=== PATIENT | female | born 1990 | race Caucasian/White ===

== ENCOUNTER 2016-06-30 | Inpatient (IN) | payer OTHER ==
[~2016-06-30] MED LIST: CLEOCIN HCL150 MG PO; CLEOCIN HCL300 M1 PO; NAPROXEN375 M1; PRENATAL1 TA1 PO; ZOFRAN ODT4 MG PO
--- NOTE | ~2016-06-30 | PN ---
Unit #: [id number] #: [id number] Patient: HANK WADE [id number] [facility] [address] [place] [address] [id number] MR#: [id number] NAME: HANK WADE ROOM: P203 Age: 26 Sex: F Admission Date: 06/30/2016 : 1990 Attending Physician: Ty Tavares M.D. Admitting Physician: Ty Tavares M.D. Primary Care Physician: Primary Care Physician Claudette HERNANDEZ PROGRESS NOTES DATE 07/01/2016 DISCUSSION The patient is seclusive to room. She continues to deny substance abuse despite proved to the contrary and continues to express paranoid feelings regarding her family. I will go ahead and initiate Zyprexa 10 mg at h.s. to address psychotic symptoms whether substance-induced or not. Dictated by... Ty Tavares M.D. CB/carmelo TD: 07/01/2016 13:37 JOB #: [id number] [facility] PROGRESS NOTES Page 1 of 1 X Ty Tavares MD X PROGRESS NOTE
--- NOTE | ~2016-06-30 | PN ---
Unit #: [id number] #: [id number] Patient: HANK WADE [id number] [facility] [address] [place] [address] [id number] MR#: [id number] NAME: HANK WADE ROOM: P203 Age: 26 Sex: F Admission Date: 06/30/2016 : 1990 Attending Physician: Ty Tavares M.D. Admitting Physician: Ty Tavares M.D. Primary Care Physician: Claudette Primary Care Physician [facility] PROGRESS NOTES DATE 07/02/2016 DISCUSSION The patient is abed today. She remains seclusive to room with little participation within therapeutic milieu, but she does seem, however, less paranoid regarding her grandparents and states she does plan to return to domicile they share upon her discharge from this facility. Dictated by... Ty Tavares M.D. CB/joshua TD: 07/02/2016 13:47 JOB #: [id number] [facility] PROGRESS NOTES Page 1 of 1 X Ty Tavares MD PROGRESS NOTE
--- NOTE | ~2016-06-30 | PN ---
Unit #: [id number] #: [id number] Patient: HANK WADE [id number] [facility] [address] [place] [address] [id number] MR#: [id number] NAME: HANK WADE ROOM: P203 Age: 26 Sex: F Admission Date: 06/30/2016 : 1990 Attending Physician: Ty Tavares M.D. Admitting Physician: Ty Tavares M.D. Primary Care Physician: Primary Care Physician Claudette HERNANDEZ PROGRESS NOTES DATE 07/03/2016 DISCUSSION The patient is abed today. She remains seclusive to room but voices no new complaints. She is probably at or near her baseline and discharge will likely take place tomorrow. Dictated by... Ty Tavares M.D. CB/elen TD: 07/03/2016 15:10 JOB #: [id number] [facility] PROGRESS NOTES Page 1 of 1 X Ty Tavares MD PROGRESS NOTE
--- NOTE | ~2016-06-30 | PN ---
Unit #: [id number] #: [id number] Patient: HANK WADE [id number] [facility] [address] [place] [address] [id number] MR#: [id number] NAME: HANK WADE ROOM: P214 Age: 26 Sex: F Admission Date: 06/30/2016 : 1990 Attending Physician: Ty Tavares M.D. Admitting Physician: Ty Tavares M.D. Primary Care Physician: Primary Care Physician Claudette HERNANDEZ PROGRESS NOTES DATE 07/05/2016 DISCUSSION The patient is much less seclusive to room and seems significantly less paranoid leaving this physician to believe that the symptoms that lead to her hospitalization were entirely related to her abuse of methamphetamine. Should she sustain progress discharge will likely take place tomorrow. Dictated by... Ty Tavares M.D. CB/kristy TD: 07/06/2016 02:19 JOB #: [id number] [facility] PROGRESS NOTES Page 1 of 1 X Ty Tavares MD X PROGRESS NOTE
--- NOTE | ~2016-06-30 | PN ---
Unit #: [id number] #: [id number] Patient: HANK WADE [id number] [facility] [address] [place] [address] [id number] MR#: [id number] NAME: HANK WADE ROOM: P203 Age: 26 Sex: F Admission Date: 06/30/2016 : 1990 Attending Physician: Ty Tavares M.D. Admitting Physician: Ty Tavares M.D. Primary Care Physician: Primary Care Physician Claudette HERNANDEZ PROGRESS NOTES DATE 07/04/2016 DISCUSSION The patient has been resting comfortably today. Staff reports no management issues but reports that she remains seclusive to room. We continue current treatment. Dictated by... Ty Tavares M.D. CB/bzg TD: 07/04/2016 12:09 JOB #: [id number] [facility] PROGRESS NOTES Page 1 of 1 X Ty Tavares MD X PROGRESS NOTE
--- NOTE | ~2016-06-30 | HP ---
Unit #: [id number] #: [id number] Patient: FIDE WADE [id number] [place] [address] [id number] MR#: [id number] NAME: FIDE WADE. ROOM: P203 Age: 26 Sex: F Admission Date: 06/30/2016 : 1990 Attending Physician: Ty Tavares M.D. Admitting Physician: Ty Tavares M.D. Primary Care Physician: Primary Care Physician No HISTORY AND PHYSICAL HISTORY OF PRESENT ILLNESS Fide is a 26 year old admitted to [address] [place] [address] because of her polysubstance abuse which includes IV heroin and methamphetamine. She is a poor historian so her history is taken from her chart. PAST MEDICAL HISTORY 1. Long history of poly-illicit substance abuse to include IV heroin. More recently she has been smoking meth. 2. Obesity. PAST SURGICAL HISTORY Nothing reported. ALLERGIES No known drug allergies. SOCIAL HISTORY Smokes 1/2 pack per day. Uses marijuana and alcohol on occasion. Has a history of other illicit substance abuse to include methamphetamine and heroin. FAMILY HISTORY Medically noncontributory. REVIEW OF SYSTEMS She does not answer any questions appropriately. There are no reports of nausea, vomiting or diarrhea. She has had no cough or increased temperature. CURRENT MEDICATIONS 1. Flexeril 10 mg t.i.d. 2. Neurontin 800 mg t.i.d. 3. Zyprexa Zydis 10 mg q. 8 hours p.r.n. 4. Milk of Magnesia p.r.n. 5. Maalox p.r.n. 6. Tylenol p.r.n. PHYSICAL EXAMINATION GENERAL: Alert, obese, in no apparent distress. VITAL SIGNS: Blood pressure 122/94, heart rate 80, respirations 16, temperature 98.6. WEIGHT: 170. HEIGHT: 5 feet 2 inches. Unit #: [id number] #: [id number] Patient: FIDE WADE SKIN: Warm and dry without rash or lesion. HEENT: Normocephalic. TMs not viewed. Oral and nasal passages clear. Conjunctivae clear. PERRLA. EOMs intact. NECK: Supple without lymphadenopathy or thyromegaly. HEART: Regular rate and rhythm without murmur. LUNGS: Clear. ABDOMEN: Soft, nontender. : Not done. EXTREMITIES: No evidence of cyanosis, clubbing or edema. Moves all without focal deficit. NEUROLOGICAL: Unable to complete extended exam. She does move all extremities without focal deficit. Hand palliative care nurse is equal and gait is normal. IMPRESSION Psychiatric admission. RECOMMENDATIONS PSYCHIATRIC: Per psychiatrist. MEDICAL: See no contraindications to participate in facility's activities. MEDICAL PROGNOSIS Good. MEDICAL CONDITION Stable. Dictated by... Milagro Hodge P.A.-C. for Nimisha Covarrubias/elen TD: 06/30/2016 17:08 JOB #: [id number] HISTORY AND PHYSICAL Page 1 of 1 X Milagro Hodge X HISTORY AND PHYSICAL
--- NOTE | ~2016-06-30 | DS ---
Unit #: [id number] #: [id number] Patient: HANK WADE [id number] [place] [address] [id number] I MR#: [id number] NAME: HANK WADE. ROOM: P214 Age: 26 Sex: F Admission Date: 06/30/2016 : 1990 Discharge Date: 07/06/2016 Attending Physician: Ty Tavares M.D. Primary Care Physician: No Primary Care Physician DISCHARGE SUMMARY REASON FOR ADMISSION The patient is a 26-year-old white female admitted to the hospital with methamphetamine induced psychosis. HOSPITAL COURSE The patient was admitted to the [address] [place] [address] unit and placed on suicide precautions. Initially she was begun on Zydis 10 mg q.8 h. p.r.n. anxiety, but as her hospital stay progressed she was begun on Zyprexa 15 mg at nighttime. She tolerated the medication well and her psychotic symptoms resolved with the initiation of this medication and with cessation of the effects of methamphetamine. The patient was bright, pleasant and cooperative and denied any psychotic thinking. On 07/06/2016 she was cleared for plan to follow up through the auspices of the [facility] in the [facility]. Discharge was ordered. DISCHARGE DIAGNOSES Methamphetamine use disorder with intoxation and delusions. FOLLOWUP CARE Follow up with take place through the auspices of the [facility] in the [facility]. DISCHARGE MEDICATIONS Zyprexa 15 mg at bedtime for psychosis. PROGNOSIS Fair and will be (1) considerably should she continue to abuse methamphetamine. The patient was informed of the risks and benefits of the medications ordered, including the possible side effects with long-term use of antipsychotic medication such as Zyprexa. She is likewise apprised of the FDA (2) including the effects of antipsychotics on the metabolism. DIET AND ACTIVITY No restrictions placed on the patient at discharge. Dictated by... Ty Tavares M.D. CB/atul TD: 07/08/2016 12:31 Unit #: [id number] #: [id number] Patient: HANK WADE JOB #: [id number] DISCHARGE SUMMARY Page 1 of 1 X Ty Tavares MD DISCHARGE SUMMARY
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
[2016-06-30 09:52] LABS: BASOPHIL# 0.1 X10e3 (0-0.3); BASOPHIL% 0.6 % (0-2.5); EOSINOPHIL# 0.1 X10e3 (0-0.7); HEMATOCRIT 40.5 % (35.0-45.0); HEMOGLOBIN 13.5 gm/dL (12.0-16.0); LYMPHOCYTE# 2.6 X10e3 (1.0-3.5); LYMPHOCYTE% 22.1 % (17.0-45.0); MEAN CELL VOLUME 97.6 FL (83-96); MEAN CORPUSCULAR HEMOGLOBIN 32.5 PG (28-34); MEAN CORPUSCULAR HGB CONC 33.3 g/dL (30-36); MEAN PLATELET VOLUME 9.2 FL (6.5-11.5); MONOCYTE# 1.1 X10e3 (0-1.0); MONOCYTE% 9.3 % (3.0-12.0); NEUTROPHIL# 7.7 X10e3 (1.5-7.1); PLATELET COUNT 290 X10e3 (140-420); RED BLOOD COUNT 4.15 X10e (3.90-5.30); RED CELL DISTRIBUTION WIDTH 12.7 % (11.0-15.5); WHITE BLOOD COUNT 11.6 X10e3 (4.0-10.5)
[2016-06-30 09:58] LABS: DIFF IND NO
[2016-06-30 11:35] LABS: ALBUMIN SERUM 4.4 g/dL (3.5-5.0); BILIRUBIN,TOTAL 1.2 mg/dL (0.2-2.0); BUN/CREATININE RATIO 16.66; CALCIUM SERUM 9.2 mg/dL (8.4-10.2); CREATININE SERUM 0.6 mg/dL (0.6-1.4); GLOM FILT RATE Estimated 125.8 mL/min (>60); POTASSIUM 3.7 mmol/L (3.5-5.1); PROTEIN TOTAL SERUM 7.3 g/dL (6.0-8.3)
[2016-07-04 11:55] LABS: URINE SOURCE CLEAN CATCH
[2016-07-04 12:21] LABS: URINE APPEARANCE TURBID; URINE BILIRUBIN NEG (NEG); URINE BLOOD TRACE (NEG); URINE COLOR YELLOW; URINE GLUCOSE NEG (NEG); URINE KETONE NEG (NEG); URINE LEUKOCYTE ESTERASE 3+ (NEG); URINE NITRATE NEG (NEG); URINE PROTEIN TRACE (NEG); URINE SPECIFIC GRAVITY 1.016 (1.003-1.035)
[2016-07-04 12:25] LABS: URINE BACTERIA AUWI 4+ (NEGATIVE); URINE SQUAMOUS EPITHELIAL CELL MANY /[HPF]; UWBCS1 AUWI 100-200 (0-5)
[2016-07-04 13:49] LABS: AMPHETAMINE POS (NEG); BARBITURATES NEG (NEG); BENZODIAZEPINES NEG (NEG); COCAINE NEG (NEG); MARIJUANA POS (NEG); OPIATES NEG (NEG); TRICYCLIC ANTIDEPRESSANTS POS (NEG); U METHADONE NEG (NEG)
== END 2016-07-06 14:08 | disposition home or self-care (01) | DRG 897 ==
LOC: P2S 04:47
PROVIDERS: Specialist
DX: F15.122 Other stimulant abuse with intoxication with perceptual disturbance (principal); F22 Delusional disorders; E66.9 Obesity, unspecified; F17.210 Nicotine dependence, cigarettes, uncomplicated
CPT/HCPCS: 80053; 80307; 81003; 84703; 85025